=== PATIENT | female | born 1960 | race Caucasian/White ===

== ENCOUNTER → 2019-10-03 | Day surgery (SDC) | payer OTHER ==
[~2019-10-03] MED LIST: HYOSCYAMINE 0.125 MG TAB ONE; METOCLOPRAMIDE HCL 10 MG/2ML VIAL ONE; PANTOPRAZOLE 40 MG 10ML VIAL ONE; PROPOFOL IV EMULSION 10 MG/ML 20 ML VIAL ONE; SIMETHICONE 40 MG/0.6 ML BTL ONE; ULTRAM 50MG50 MG PO
[2019-10-03 09:30] VITALS: BP 105/70
--- NOTE | 2019-10-03 11:14 | Operative Report ---
DATE OF PROCEDURE: 10/03/2019 SURGEON: Westley Fajardo MD PROCEDURE: An EGD with biopsies and a colonoscopy with polypectomy. INDICATION FOR EGD: Upper abdominal pain, bloating, heartburn. INDICATIONS FOR COLONOSCOPY: Colorectal cancer screening. MEDICATIONS: The patient was done under MAC. Please see anesthesiologist's note. PROCEDURE IN DETAIL: With the patient in left lateral decubitus position, a flexible fiberoptic Olympus gastroscope was introduced into the esophagus under direct visualization without any difficulty. Two minute flat polypoid lesions were removed per the cold biopsy forceps in approximately mid of the esophagus. There was some patchy erythema noted in the distal esophagus. An approximately 1.2 cm polypoid lesion was noted at the GE junction that was biopsied. The scope was then advanced with ease into the stomach. Mucosa overlying the antrum and the body revealed some patchy erythema and [id number]-[id number] edema and biopsies were obtained and sent to stain for H. pylori. A [id number] amount of retained undigested food was noted in the stomach, reflecting some degree of gastroparesis precluding visualization of the proximal body in the fundus. The pylorus was of normal contour and shape. It was intubated with ease and the scope was advanced all the way to the second portion of the duodenum. Biopsies were obtained from the proximal second portion and the duodenal bulb. The scope was then withdrawn back into the stomach and retroflexed and the fundus in the proximal body was not well visualized due to the retained undigested food. The scope was then straightened out. It was subsequently withdrawn. The patient tolerated the procedure well. IMPRESSION: 1. Distal esophagitis. 2. Rule out squamous papilloma, esophagus. 3. Approximately 1.2 cm polypoid lesion, GE junction, and biopsied. 4. Gastritis, biopsied. Ecqyaqpu-sv-[id number] amount of retained undigested food in stomach precluding visualization of fundus and proximal body. 5. Rule out sprue. PLAN: Follow up histology. Initiate Protonix 40 mg one p.o. q.a.m. a.c. EGD in 2 months to re-evaluate GE junction lesion if biopsies inspector returned materials to be benign. The patient was then turned around after adequate lubrication of the anal canal and a flexible fiberoptic Olympus colonoscope was inserted into the rectum with ease and advanced all the way to the cecum. [id number] amount of scattered fecal material was noted in the colon. The cecum was poorly visualized due to retained fecal material. The scope was then withdrawn slowly. One minute polyp was removed per cold biopsy forceps from the ascending colon. Whatever was visualized of the transverse colon appeared to be within normal limits. One polyp was removed per hot biopsy forceps and one polyp was removed per hot snare polypectomy and site was hemoclipped x1 in the descending colon. Whatever was visualized, the mucosa overlying the sigmoid and rectum grossly appeared to be within normal limits. The scope was then retroflexed into the distal rectum. Small internal hemorrhoids were noted, none of which was actively bleeding. The scope was then straightened out. It was subsequently withdrawn. The patient tolerated the procedure well. IMPRESSION: 1. Suboptimal to poor prep. 2. Ascending colon polyp, minute, removed per cold biopsy forceps. 3. Descending colon polyps x2. One hot biopsied and one hot snared and hemoclipped x1. 4. Internal hemorrhoids, none actively bleeding. PLAN: Follow up histology. Initiate high-fiber, low-fat diet. Initiate high-fiber supplement. The patient will need a repeat colonoscopy after a better prep. MD SUJEY Larose/RAMIRO /[id number] cc: Bridger Bruce DO
== END | disposition home or self-care (01) ==
LOC: OR 05:50
PROVIDERS: ATTEND Internal Medicine Gastroenterology
DX: Z12.11 Encounter for screening for malignant neoplasm of colon (principal); D12.2 Benign neoplasm of ascending colon; D12.4 Benign neoplasm of descending colon; K31.7 Polyp of stomach and duodenum; K29.50 Unspecified chronic gastritis without bleeding; K21.9 Gastro-esophageal reflux disease without esophagitis; K20.9 Esophagitis, unspecified; K31.89 Other diseases of stomach and duodenum; K64.8 Other hemorrhoids; K59.00 Constipation, unspecified; M19.90 Unspecified osteoarthritis, unspecified site; G43.909 Migraine, unspecified, not intractable, without status migrainosus; Z88.6 Allergy status to analgesic agent; Z01.810 Encounter for preprocedural cardiovascular examination; Z01.812 Encounter for preprocedural laboratory examination; Z11.59 Encounter for screening for other viral diseases
CPT/HCPCS: 43239; 45380; 45384; 45385; 87635; 93005; C9113; J2704; J2765; 45378

== ENCOUNTER → 2021-01-28 | Day surgery (SDC) | payer BC, OTHER ==
[~2021-01-28] MED LIST changes: +EMGALITY S120 MG/1 M INJ; +FAMOTIDINE20 MG PO; +FEMHRT 0.5 MG-1 EACH PO; -HYOSCYAMINE 0.125 MG TAB ONE; -METOCLOPRAMIDE HCL 10 MG/2ML VIAL ONE; -PANTOPRAZOLE 40 MG 10ML VIAL ONE; -PROPOFOL IV EMULSION 10 MG/ML 20 ML VIAL ONE; -SIMETHICONE 40 MG/0.6 ML BTL ONE
[2021-01-28 09:55] VITALS: BP 132/79
== END | disposition home or self-care (01) ==
LOC: OR 08:04
PROVIDERS: ATTEND Internal Medicine Gastroenterology
DX: K64.8 Other hemorrhoids (principal); K63.5 Polyp of colon; K29.60 Other gastritis without bleeding; K29.50 Unspecified chronic gastritis without bleeding; K31.1 Adult hypertrophic pyloric stenosis; K31.89 Other diseases of stomach and duodenum; K20.90 Esophagitis, unspecified without bleeding; K59.09 Other constipation; K57.30 Diverticulosis of large intestine without perforation or abscess without bleeding; K44.9 Diaphragmatic hernia without obstruction or gangrene; K21.9 Gastro-esophageal reflux disease without esophagitis; G43.909 Migraine, unspecified, not intractable, without status migrainosus; Z72.0 Tobacco use; Z88.6 Allergy status to analgesic agent; Z01.810 Encounter for preprocedural cardiovascular examination; Z01.812 Encounter for preprocedural laboratory examination; Z20.822 Contact with and (suspected) exposure to COVID-19; Z68.28 Body mass index [BMI] 28.0-28.9, adult
CPT/HCPCS: 43239; 43245; 45385; 93005; C9113; U0002; 43233; 45378

== ENCOUNTER → 2021-04-14 | Day surgery (SDC) | payer BC ==
[~2021-04-14] MED LIST changes: +ESTROGEN PO; +FENTANYL CITRATE/PF 100MCG/2 ML INJ ONE; +FLUCONAZOLE 100 MG TAB ONE; +LIDOCAINE HCL 2% LOCAL INJ 5 ML SDV VIAL INJ ONE; +MIDAZOLAM HCL 2 MG/2 ML VIAL ONE; +PANTOPRAZOLE SO40 MG PO; +PROPOFOL IV EMULSION 10 MG/ML 20 ML VIAL ONE
[2021-04-14 08:50] VITALS: BP 140/96
== END | disposition home or self-care (01) ==
LOC: OR 06:51
PROVIDERS: ATTEND Internal Medicine Gastroenterology
DX: B37.81 Candidal esophagitis (principal); K29.70 Gastritis, unspecified, without bleeding; K44.9 Diaphragmatic hernia without obstruction or gangrene; K31.1 Adult hypertrophic pyloric stenosis; Z01.810 Encounter for preprocedural cardiovascular examination; Z01.812 Encounter for preprocedural laboratory examination; Z20.822 Contact with and (suspected) exposure to COVID-19; K21.9 Gastro-esophageal reflux disease without esophagitis; Z88.5 Allergy status to narcotic agent
CPT/HCPCS: 43245; 93005; C1726; C9113; J2001; J2250; J2704; J3010; U0002; 43235; 43450